=== PATIENT | female | born 1965 | race African-American/Black ===

== ENCOUNTER 2018-11-29 06:54 | Emergency (ER) | payer MEDICAID ==
[~2018-11-29] VITALS: Ht 170.2 cm; Wt 77.1 kg
[2018-11-29] MEDS ORDERED: cloNIDine HCL 0.1 MG TAB PO ONE (07:15)
[2018-11-29] MEDS ORDERED: LIDOCAINE VISCOUS 2% 15ML UD MT ONE (07:45)
[2018-11-29 08:30] VITALS: BP 166/106
[2018-11-29] MEDS ORDERED: HYDROcodone-ACET 5/325MG TAB PO ONE (08:30)
== END 2018-11-29 08:53 | disposition home or self-care (01) ==
LOC: ER 06:54
DX: H60.91 Unspecified otitis externa, right ear (principal); I10 Essential (primary) hypertension; F17.210 Nicotine dependence, cigarettes, uncomplicated; Z90.710 Acquired absence of both cervix and uterus

== ENCOUNTER 2019-04-27 12:33 | Emergency (ER) | payer MEDICAID, OTHER ==
[~2019-04-27] VITALS: Ht 172.7 cm; Wt 77.1 kg
[2019-04-27 12:40] VITALS: BP 142/106
== END 2019-04-27 15:45 | disposition left against medical advice (07) ==
LOC: ER 12:37
DX: R50.9 Fever, unspecified (principal); Z53.21 Procedure and treatment not carried out due to patient leaving prior to being seen by health care provider

== ENCOUNTER 2019-05-25 09:35 | Emergency (ER) | payer MEDICAID, OTHER ==
[~2019-05-25] VITALS: Ht 172.7 cm; Wt 78.9 kg
[2019-05-25 12:02] VITALS: BP 164/102
== END 2019-05-25 13:04 | disposition home or self-care (01) ==
LOC: ER 09:35
DX: R51 Headache (principal); I10 Essential (primary) hypertension; F17.210 Nicotine dependence, cigarettes, uncomplicated; Z90.710 Acquired absence of both cervix and uterus

== ENCOUNTER 2019-06-12 09:59 | Emergency (ER) | payer SELFPAY ==
[~2019-06-12] VITALS: Ht 170.2 cm; Wt 78.5 kg
[2019-06-12 10:43] VITALS: BP 167/103
== END 2019-06-12 10:55 | disposition home or self-care (01) ==
LOC: ER 09:59
DX: G89.4 Chronic pain syndrome (principal); F17.210 Nicotine dependence, cigarettes, uncomplicated; I10 Essential (primary) hypertension

== ENCOUNTER 2019-10-02 10:57 | Emergency (ER) | payer SELFPAY ==
[~2019-10-02] VITALS: Ht 172.7 cm; Wt 81.6 kg
[2019-10-02 11:02] VITALS: BP 146/85
== END 2019-10-02 12:26 | disposition home or self-care (01) ==
LOC: ER 10:57
DX: Z76.0 Encounter for issue of repeat prescription (principal); G89.29 Other chronic pain; M54.5 Low back pain; F17.210 Nicotine dependence, cigarettes, uncomplicated; Z90.710 Acquired absence of both cervix and uterus

== ENCOUNTER 2019-10-09 11:58 | Emergency (ER) | payer MEDICAID ==
[~2019-10-09] VITALS: Ht 172.7 cm; Wt 77.1 kg
[2019-10-09 12:14] VITALS: BP 117/76
[2019-10-09] MEDS ORDERED: KETOROLAC TROMETH 60MG/2ML VIAL IM ONE (13:30)
== END 2019-10-09 13:45 | disposition home or self-care (01) ==
LOC: ER 11:58
DX: G89.29 Other chronic pain (principal); M54.5 Low back pain; Z76.0 Encounter for issue of repeat prescription
CPT/HCPCS: 96372; 99283; J1885

== ENCOUNTER 2020-02-02 06:05 | Emergency (ER) | payer SELFPAY ==
[~2020-02-02] VITALS: Ht 172.7 cm; Wt 79.8 kg
[2020-02-02 06:28] VITALS: BP 170/106
== END 2020-02-02 07:47 | disposition left against medical advice (07) ==
LOC: ER 06:05
DX: R10.9 Unspecified abdominal pain (principal); R11.0 Nausea; Z53.21 Procedure and treatment not carried out due to patient leaving prior to being seen by health care provider